=== PATIENT | male | born 1965 | race Caucasian/White ===

== ENCOUNTER 2023-05-24 10:09 | Outpatient (CLI) | payer OTHER, SELFPAY ==
[2023-05-24 20:01] LABS: Alanine Aminotransferase 36 U/L (6-50); Albumin Level 4.3 g/dL (3.5-5.1); Alkaline Phosphatase 104 U/L (38-126); Anion Gap 6 mmol/L (8-16); Aspartate Amino Transferase 36 U/L (17-59); Bilirubin,Total 1.3 mg/dL (0.2-1.3); Blood Urea Nitrogen 15 mg/dL (9-20); Carbon Dioxide 30 mmol/L (22-30); Chloride 104 mmol/L (98-107); Cholesterol 107 mg/dL (0-200); Estimated Glomerular Filt Rate > 60; Glucose 101 mg/dL (65-110); HDL Direct 35 mg/dL; Potassium 4.3 mmol/L (3.4-5.0); Sodium 140 mmol/L (137-145); Triglycerides 80 mg/dL (<150)
[2023-05-24 20:13] LABS: Basophils Percent Auto 0.6 % (0.2-1.2); Eosinophils Absolute Auto 0.1 K/mm3 (0-0.3); Eosinophils Percent Auto 1.9 % (0-4.4); Hematocrit 45.5 % (42.0-52.0); Hemoglobin 14.9 g/dL (14.0-18.0); Immature Granulocyte Absolute 0.02 K/mm3 (0.00-0.031); Immature Granulocyte Percent A 0.3 % (0-0.5); Lymphocytes Absolute Auto 1.79 K/mm3 (0.9-3.2); Lymphocytes Percent Auto 26.8 % (18.3-44.2); Mean Corpuscular HGB Conc 32.7 g/dl (32-36); Mean Corpuscular Hemoglobin 28.7 pg (26-34); Mean Corpuscular Volume 87.5 fl (80-100); Mean Platelet Volume 10.4 fl (7.4-10.4); Monocytes Absolute Auto 0.7 K/mm3 (0.1-0.6); Monocytes Percent Auto 10.8 % (2.6-8.5); Neutrophils Percent Auto 59.6 % (45.5-73.1); Platelet Count Result 274 k/mm3 (150-375); Red Cell Distribution Width 13.2 % (11.5-14.5); White Blood Count 6.7 K/mm3 (4.5-10.0)
[2023-05-24 20:17] LABS: LDL Cholesterol Direct 57 mg/dL
== END 2023-05-24 10:10 | disposition home or self-care (01) ==
LOC: ANHGOSHLAB 10:10
PROVIDERS: PCP Family Medicine; Visit Provider Family Medicine
DX: E78.2 Mixed hyperlipidemia (principal); R73.03 Prediabetes; I10 Essential (primary) hypertension; G47.33 Obstructive sleep apnea (adult) (pediatric)
CPT/HCPCS: 36415; 80053; 80061; 83036; 85025

== ENCOUNTER 2025-06-09 09:08 | Outpatient (CLI) | payer BC, SELFPAY ==
--- NOTE | ~2025-06-09 | CT_ITS ---
EXAMINATION: CT soft tissue neck w con DATE: 06/09/2025 09:43 INDICATION: Dysphagia, unspecified. TECHNIQUE: Computed tomography (CT) of the neck was performed with 75 mL Omnipaque-350 intravenous contrast. Automated exposure control and iterative reconstruction technique were employed. The dose-length product was 508.32 mGy-cm. COMPARISON: None FINDINGS: There is enlargement of right palatine tonsil. No abscess. The epiglottis is normal. There are no pathologically enlarged lymph nodes. The paranasal sinuses are clear. The mastoid air cells are normal. There is moderate cervical spondylosis. IMPRESSION: 1. Enlargement of right palatine tonsil. Reviewed, dictated and finalized at location E. [employer]DER [employer]ACH[employer]PERATOR
--- OUTSIDE RECORDS SUMMARY | 2025-06-09 09:26 | XMS_ITS | Clinical Summary ---
Author Organization [facility] Address [address] [place] [address] Phone Care Team Providers Care Physician Credentialing Specialist Name Role Phone Brooklyn Rosales MD Primary Care Provider Allergies No known active allergies Medications hydroCHLOROthia zide 25 MG Tablet nightly. 2 Active metoprolol Succinate (TOPROL-XL) 100 MG TABLET SR 24 HR nightly. 3 Active telmisartan (MICARDIS) 40 MG Tablet nightly. 2 Active aspirin 81 MG Chewable Tablet Take 1 Tablet by mouth daily. 30 Tablet 3 Active Additional Information Patient not taking.Reported on 09/25/2022 ondansetron (ZOFRAN-ODT) 4 MG TABLET DISPERSIBLE Take 1 Tablet by mouth every 6 hours as needed for Nausea - 1st line. 10 Tablet 3 Active Additional Information Patient not taking.Reported on 09/25/2022 polyethylene glycol (GLYCOLAX, MIRALAX) 17 g PackIndications :Constipation Take 1 Packet by mouth 2 times daily as needed for Constipation - 1st line. Dissolve in 4-8 oz of liquid. Indications: Constipation 90 Packet 3 Active Additional Information Patient not taking.Reported on 09/25/2022 senna (SENOKOT) 8.6 MG Tablet Take 1 Tablet by mouth 2 times daily as needed for Constipation - 2nd line. 30 Tablet 3 Active Additional Information Patient not taking.Reported on 09/25/2022 esomeprazole (NexIUM) 40 MG CAPSULE DELAYED RELEASE 3 Active sertraline (ZOLOFT) 50 MG Tablet Take 50 mg by mouth daily. Active atorvastatin (LIPITOR) 40 MG Tablet Take 1 Tablet by mouth daily. 90 Tablet 3 3 Active atorvastatin (LIPITOR) 40 MG Tablet Take 1 Tablet by mouth nightly. 90 Tablet 3 Active Active Problems Problem Noted Date Diagnosed Date Hypertension 08/29/2022 Dyslipidemia 08/29/2022 Acute chest pain 08/28/2022 Social History Tobacco Use Types Packs/Day Years Used Date Smoking Tobacco: Never Smokeless Tobacco: Never Tobacco Cessation:Counseling Given: No Sex and Gender Information Value Date Recorded Sex Assigned at Not on file Legal Sex Male 11:29 PM CDT Gender Identity Not on file Sexual Orientation Not on file Last Filed Vital Signs Vital Sign Reading Time Taken Comments Blood Pressure 124/80 09/25/2022 2:19 PM CDT Pulse 78 09/25/2022 2:19 PM CDT Temperature 36.5 C (97.7 F) 08/29/2022 5:51 AM CDT Respiratory Rate 13 09/25/2022 2:19 PM CDT Oxygen Saturation 96% 09/25/2022 2:19 PM CDT Inhaled Oxygen Concentration - - Weight 122 kg (269 lb) 08/28/2022 1:00 PM CDT Height 182.9 cm (6') 08/28/2022 1:00 PM CDT Body Mass Index 36.48 08/28/2022 1:00 PM CDT Plan of Treatment Health Maintenance Due Date Last Done Comments Hepatitis C Virus (HCV) Screening 1965 Hepatitis B Immunization (1 of 3 - 19+ 3-dose series) 1985 Cologuard 11/25/2011 Colonoscopy 11/25/2011 Colorectal Cancer Screening 11/25/2011 Immunochemical Fecal Occult Blood 11/25/2011 Pneumococcal Immunization (50+ years) (1 of 1 - PCV) 2016 Zoster Immunization (1 of 2) 2016 PSA Discussion 2021 Influenza Immunization (#1) 2025 12/0 12/2021, 05/17/2021, 04/27/2020, Additional history exists SARS-COV-2 Immunization ( season) 2025 07/08/2021, 09/26/2020, 09/05/2020 Respiratory Syncytial Virus (RSV) Immunization (Adult) (1 - 1-dose 75+ series) 2041 DTaP/Tdap/Td Immunization Discontinued 04/27/2020 TdaP Immunization Completed 04/27/2020 Human Papillomavirus (HPV) Immunization (No Doses Required) Completed Meningococcal Immunization (ACWY) Aged Out No longer eligible based on patient's age to complete this topic Rotavirus Immunization Aged Out No lo nger eligible based on patient's age to complete this topic Insurance [address] Advance Directives * Full Code (Latest Code Status on File) Date Activated Date Inactivated Comments 08/28/2022 12:03 PM 08/29/2022 9:24 PM CPR-Full Tr eatment: FULL ARREST: Attempt Resuscitation/CPR wit intubation and mechanical ventilation. PRE-ARREST: Use entire range of life support measures to stabilize the patient. Care Teams Physician Credentialing Specialist Relationship Specialty Start Date End Date Brooklyn Rosales MD PCP - General Family Medicine 08/28/22
[2025-06-09 09:40] LABS: Estimated Glomerular Filt Rate > 60
== END 2025-06-09 09:09 | disposition home or self-care (01) ==
LOC: ANHIMG 09:14
PROVIDERS: PCP Family Medicine; Visit Provider Otolaryngology
DX: J35.1 Hypertrophy of tonsils (principal); R13.10 Dysphagia, unspecified; K14.8 Other diseases of tongue
CPT/HCPCS: 70491; Q9967